=== PATIENT | female | born 1965 | race Caucasian/White ===

== ENCOUNTER → 2017-06-19 | Outpatient (CLI) | payer BC | LOC: MC.RAD 14:20 | DX: Z12.31 Encounter for screening mammogram for malignant neoplasm of breast (principal); N64.89 Other specified disorders of breast ==

== ENCOUNTER → 2017-06-28 | Outpatient (CLI) | payer BC | LOC: MC.RAD 13:00 | DX: N60.02 Solitary cyst of left breast (principal) ==

== ENCOUNTER → 2018-09-04 | Outpatient (CLI) | payer OTHER | LOC: MC.RAD 17:00 | DX: Z12.31 Encounter for screening mammogram for malignant neoplasm of breast (principal) ==

== ENCOUNTER → 2019-08-05 | Outpatient (CLI) | payer OTHER | LOC: MC.RAD 07:54 | DX: N60.01 Solitary cyst of right breast (principal); N60.02 Solitary cyst of left breast | CPT/HCPCS: G0279 ==

== ENCOUNTER → 2020-06-15 | Outpatient (CLI) | payer OTHER | LOC: MC.RAD 12:46 | DX: N63.22 Unspecified lump in the left breast, upper inner quadrant (principal) ==

== ENCOUNTER → 2020-09-14 | Outpatient (CLI) | payer OTHER | LOC: MC.RAD 10:53 | DX: R92.8 Other abnormal and inconclusive findings on diagnostic imaging of breast (principal) ==

== ENCOUNTER → 2020-09-21 | Outpatient (CLI) | payer OTHER | LOC: MC.RAD 06:54 | DX: R92.0 Mammographic microcalcification found on diagnostic imaging of breast (principal) ==

== ENCOUNTER → 2023-10-31 | Outpatient (CLI) | payer OTHER | LOC: MC.RAD 15:17 | DX: Z12.31 Encounter for screening mammogram for malignant neoplasm of breast (principal) ==